=== PATIENT | male | born 1965 | race Caucasian/White ===

== ENCOUNTER 2019-09-06 18:25 | Emergency (ER) | payer BC ==
--- NOTE | 2019-09-06 20:26 | ED ---
Laceration/Wound HPI - HPI Summary HPI Summary: 54-year-old male presents with laceration to his left ulnar forearm. States just prior to arrival he was attempting to some wiring on a light fixture using a utility knife when he accidentally slipped and cut his forearm. Bleeding was controlled with direct pressure prior to arrival. States last tetanus was in 2017. Denies any numbness or tingling. - History of Current Complaint Stated Complaint: LT ARM LAC PER PT Time Seen by Provider: 09/06/19 19:46 Hx Obtained From: Patient Pain Intensity: 8 - Allergy/Home Medications Allergies/Adverse Reactions: Allergies Allergy/AdvReac Type Severity Reaction Status Date / Time No Known Allergies Allergy Verified 09/06/19 18:40 Home Medications: Home Medications Pravastatin (NF) [Pravachol (NF)] 10 mg PO DAILY 09/06/19 [History Confirmed ] PMH/Surg Hx/FS Hx/Imm Hx Previously Healthy: Yes - Denies significant PMH - Surgical History Surgical History: None - Immunization History Date of Tetanus Vaccine: 2016 Infectious Disease History: No Infectious Disease History: Denies: Traveled Outside the [place] in Last 30 Days - Family History Known Family History: Positive: Non-Contributory - Social History Occupation: Employed Full-time Lives: Alone Alcohol Use: Occasionally Substance Use Type: Reports: None Smoking Status (MU): Never Smoked Tobacco Review of Systems Constitutional: Negative Cardiovascular: Negative Respiratory: Negative Gastrointestinal: Negative Genitourinary: Negative Musculoskeletal: Negative Skin: Other - See HPi Neurological: Negative All Other Systems Reviewed And Are Negative: Yes Physical Exam - Summary Physical Exam Summary: GENERAL APPEARANCE: Well developed, well nourished, alert and cooperative, and appears to be in no acute distress. CARDIAC: Normal S1 and S2. No S3, S4 or murmurs. Rhythm is regular. There is no peripheral edema, cyanosis or pallor. Extremities are warm and well perfused. Capillary refill is less than 2 seconds. Peripheral pulses intact. LUNGS: Clear to auscultation without rales, rhonchi, wheezing or diminished breath sounds. ABDOMEN: Positive bowel sounds. Soft, nondistended, nontender. No guarding or rebound. No masses or hepatosplenomegally. MUSKULOSKELETAL: ROM intact to all extremities. No joint erythema or tenderness. Normal muscular development. Normal gait. EXTREMITIES: Superficial linear laceration to the mid ulnar left forearm with bleeding controlled. Circulation and sensation intact. SKIN: Skin normal color, texture and turgor. Triage Information Reviewed: Yes Vital Signs On Initial Exam: Initial Vitals Temp Pulse Resp BP Pulse Ox 98.7 F 82 16 135/93 95 09/06/19 18:34 09/06/19 18:34 09/06/19 18:34 09/06/19 18:34 09/06/19 18:34 Vital Signs Reviewed: Yes Procedures - Procedure Summary Procedure Summary: Procedure note: Laceration repair left forearm Informed consent was obtained before procedure started and the appropriate timeout was taken. The area was prepped and draped in the usual sterile fashion. Local anesthesia was achieved using 3 ml of lidocaine 1% without epinephrine. The wound was thoroughly cleaned using an saline and chlorhexadine solution. The wound margins were brought into good alignment and 3 interrupted sutures were placed using 5-0 Ethilon. Total length of wound after repair was 1.5 cm. Estimated blood loss was minimal. A dressing was applied to the area by the RN. Anticipatory guidance, as well as standard post-procedure care was discussed with patient. Return precautions are given. The patient tolerated the procedure well without complications. Patient is to follow up in 10 days for suture removal and evaluation of the laceration. - Sedation Patient Received Moderate/Deep Sedation with Procedure: No Diagnostics - Vital Signs Vital Signs Temp Pulse Resp BP Pulse Ox 09/06/19 18:34 98.7 F 82 16 135/93 95 - Laboratory Lab Statement: Any lab studies that have been ordered have been reviewed, and results considered in the medical decision making process. Laceration Repair Course/Dx - Course Course Of Treatment: 54-year-old male presents with laceration to his left ulnar forearm. States just prior to arrival he was attempting to some wiring on a light fixture using a utility knife when he accidentally slipped and cut his forearm. Bleeding was controlled with direct pressure prior to arrival. States last tetanus was in 2017. Denies any numbness or tingling. Afebrile. Vital signs stable. Patient is superficial linear laceration to the left ulnar forearm. Bleeding was controlled. Circulation sensation were intact. After achieving adequate anesthesia with lidocaine 1% without epinephrine the wound was thoroughly cleaned and of the laceration was repaired using a total of 3 interrupted sutures using 5-0 Ethilon. A dressing was applied by the RN. Patient is to return in 10 days for suture removal. Wound care, anticipatory guidance, and warning symptoms were reviewed with the patient. Verbalizes understanding and agrees with plan of care. - Differential Dx Differental Diagnoses: Laceration - Clinical Impression Provider Diagnoses: Laceration of left forearm Discharge ED - Sign-Out/Discharge Documenting (check all that apply): Patient Departure - Discharge Plan Condition: Stable Disposition: HOME Patient Education Materials: Care For Your Stitches (ED), Laceration (ED) Referrals: Crescencio Brumfield MD [Primary Care Provider] - Additional Instructions: Leave the dressing that was applied in the clinic in place until tomorrow. Be sure to keep it clean and dry. Starting tomorrow, you may remove the dressing and shower as normal. Do not submerge the arm under water to prevent infection. Clean the wound with a mild soap and water at least once a day. Apply some antibiotic ointment and cover with a bandage. This should be changed at least once a day or any time the dressing becomes wet or soiled. Use acetaminophen (Tylenol) or ibuprofen (Advil, Motrin) according to directions as needed for pain. Sutures will need to be removed in 10 days. You may return here, to urgent care , or with your primary care provider to have this done. Watch for signs of infection including fever greater than 100.5 F, severe pain not managed with pain medication, redness that spreads, swelling of the hand/ fingers, or pus draining from the wound. Seek immediate medical attention should any of these occur. - Billing Disposition and Condition Condition: STABLE Disposition: Home
[2019-09-06] MEDS: Bacitracin OINTMENT* 0.5% 0.5 oz TUBE TOPICAL ONE (20:55)
[2019-09-06 21:10] VITALS: BP 129/86
== END 2019-09-06 21:02 | disposition home or self-care (01) ==
LOC: ED 18:25
DX: S51.812A Laceration without foreign body of left forearm, initial encounter (principal); W26.0XXA Contact with knife, initial encounter; Y92.9 Unspecified place or not applicable; Z79.899 Other long term (current) drug therapy
CPT/HCPCS: 12001; 99282; A9270-GY